=== PATIENT | male | born 1940 | race Caucasian/White ===

== ENCOUNTER 2019-06-18 09:30 | Outpatient (RCR) | payer MEDICARE, SELFPAY ==
--- NOTE | 2019-05-29 10:49 | LSVTBIG ---
PHYSICAL THERAPY [facility] EVALUATION AND PLAN OF CARE Thank you for referring this patient to [facility]. Jay will be seen in physical therapy in conjunction with occupational therapy in [email or web address] BIG program 2x/week for 4 weeks of each discipline Please review, sign, date and return this plan of care BLAINE. I agree with and certify that the following plan of care is medically necessary. Referring Physician Date *[facility] Evaluation Start: 05/29/19 08:31 Therapy Discipline Physical Therapy Self Report Pain Level 0 Pain Score Pain Score 0: Self Report Parkinson's Related History Parkinson's Related History Diagnosis/Stage Date Of Initial Initial dx was 4 years ago. Neurosurgeon wouldn't do surgery because of PD. He was referred to a neurologist, but treatment was delayed due to also having lymphoma. began noticing symptoms about 6 years ago when he fell up the steps and started shuffling his feet. Frequent falls: last fall was 1.5weeks ago, but about a month ago he fell 7 times in 1 week. Has been using walker franchise field consultant for 3 weeks. Since diagnosed in 2016 he has experienced symptoms, but in the last couple of month she has significantly worsened in walking, cognitively, and decreased ability to pull shirt on all the way. Patient's notes that he has c/o left hip pain on occasion in the last week. No c/o pain today. What Were Your Initial Symptoms Of Falls and shuffling of feet Parkinson's Disease? Do You Have A Tremor? No Medication For Parkinson's Disease carbadopa levadopa (Started taking in Apr 2016), takes 4x/ day starting @ 8A In What Ways Are Your Medications For reports at night he's Parkinson's Helpful? worse . She reports he's more anxious and depressed. Does Your Parkinson Medication Affect Yes - it gives him the ability Your Movement? Please Describe to walk; Do You Experience On/Off Symptoms? yes - when there is a missed Please Describe dose, his notes that he is unable to walk until he is able to take the medicine again. Have You Had Neurosurgery? 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 Have You Had Orthopedic Surgery? 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 he no longer performs any chores - was washing/drying dishes and was dusting furniture on weekends Motor Symptoms When Did You First Start To Notice 6 years ago, loss sense of Changes In Movement You Associate with smell 20 years ago, PD states he really got bad in 2016 What Are Your Current Symptoms?
--- NOTE | 2019-05-29 11:39 | LSVTBIG ---
OCCUPATIONAL THERAPY [facility] EVALUATION NOTE 05/29/2019 Thank you for referring this patient to [facility]. Jay will be seen for OT injunction with PT for [facility] BIG program 2x/week for 4 weeks of each discipline. Please review, sign, date and return this plan of care BLAINE. I agree with and certify that the following plan of care is medically necessary. Referring Physician Date Referring Provider: Jing Dempsey M.D. *[facility] BIG Occupational Therapy Evaluation Parkinson's Related History Parkinson's Related History Diagnosis/Stage Date Of Initial Initial dx was 4 years ago. Diagnosis Neurosurgeon wouldn't do back surgery because of PD. He was referred to a neurologist, but treatment was delayed due to also having lymphoma. began noticing symptoms about 6 years ago when he fell up the steps and started shuffling his feet. Frequent falls: last fall was 1.5weeks ago, but about a month ago he fell 7 times in 1 week. Has been using walker power operator for 3 weeks. Since diagnosed in 2016 he has experienced symptoms, but in the last couple of month she has significantly worsened in walking, cognitively, and decreased ability to pull shirt on all the way. Patient's notes that he has c/o left hip pain on occasion in the last week. No c/o pain today. What Were Your Initial Symptoms Of Falls and shuffling of feet Parkinson's Disease? Do You Have A Tremor? No Medication For Parkinson's Disease carbadopa levadopa (Started taking in Apr 2016), takes 4x/ day starting @ 8A In What Ways Are Your Medications For reports at night he's Parkinson's Helpful? worse . She reports he's more anxious and depressed. Does Your Parkinson Medication Affect Yes - it gives him the ability Your Movement? Please Describe to walk; Do You Experience On/Off Symptoms? yes - when there is a missed Please Describe dose, his notes that he is unable to walk until he is able to take the medicine again. Have You Had Neurosurgery? Please Neurosurgery on neck and back Describe
--- NOTE | 2019-06-11 09:35 | PCPTNOTE ---
Patient called & cancelled scheduled appointment this date due to being in the hospital.
--- NOTE | 2019-06-19 13:04 | PCPTNOTE ---
Patient's called & cancelled scheduled appointment for 06/20/2019 due to hospitalization
--- NOTE | 2019-06-24 09:01 | PCOTNOTE ---
Patient's called and cancelled tx today due to hospitalization.
--- NOTE | 2019-07-03 15:30 | OTOPEVAL ---
OCCUPATIONAL THERAPY DISCHARGE NOTE 07/03/2019 Jay has been hospitalized a second time since the start of care. Per patient's , he is deconditioned from this hospitalization and they are going to work on getting him more mobile before he returns to begin [facility] treatment again. She understands that they will need another referral to return. Plan to discharge today with goals not met. Thank you for referring this patient to [facility]. Please review, sign, date and return this D/C note BLAINE. I agree with and certify that the following plan of care is medically necessary. Referring Physician Date Referring Provider: Jing Dempsey MD
--- NOTE | 2019-07-03 18:29 | PCPTNOTE ---
PHYSICAL THERAPY DISCHARGE NOTE Patient:Jay Oneal [place] Date of :1940 Patient has not returned for any further treatments since 06/18/2019, therefore she will be discharged from therapy at this time. Jay was hospitalized for several weeks and requires some time to recover before returning to PT. The goals have been partially achieved. Thank you for referring this patient to [facility]. Please review, sign, date and return this discharge summary BLAINE. I have been updated about the patient's current status and I agree with discharge from the above service at this time. Referring Physician Date
== END 2019-07-04 09:33 | disposition home or self-care (01) ==
LOC: ANHPT 09:30
PROVIDERS: PCP Internal Medicine
DX: G20 Parkinson's disease (principal); R26.9 Unspecified abnormalities of gait and mobility
CPT/HCPCS: 97110; 97162; 97165; 97535